=== PATIENT | female | born 1960 | race Caucasian/White ===

== ENCOUNTER → 2017-01-06 | Outpatient (CLI) | payer BC ==
[~2017-01-06] MED LIST: PRT/20 PO
--- NOTE | 2017-01-07 08:01 | MAMMOGRAPHY REPORT ---
BILATERAL DIGITAL SCREENING MAMMOGRAM TOMOSYNTHESIS WITH CAD: 01/06/2017 CLINICAL HISTORY: Routine screening examination. TECHNIQUE: Breast tomosynthesis in addition to standard 2D mammography was performed. Current study was also evaluated with a Computer Aided Detection (CAD) system. COMPARISON: Comparison is made to exams dated: 01/04/2016 mammogram, 01/02/2015 mammogram, 12/28/2012 ma mmogram, and 12/27/2011 mammogram - [facility]. BREAST COMPOSITION: There are scattered areas of fibroglandular density in both breasts. FINDINGS: There is a newly visualized 3.8 mm circumscribed round mass in the upper inner posterior left breast, for which additional characterization with ultrasound and possible additional mammograp hic views are recommended. There are scattered stable benign-appearing microcalcifications bilaterally. No other suspicious mas s, architectural distortion or cluster of microcalcifications is seen. IMPRESSION: ACR BI-RADS CATEGORY 0: INCOMPLETE EVALUATION: NEED ADDITIONAL IMAGING EVALUATION The newly visualized 3.8 mm circumscribed round mass in the left upper inner breast needs additional evaluation. The patient will be called to schedule an appointment. Approximately 10% of breast cancers are not detected with mammography. A negative mammographic repor t should not delay biopsy if a clinically suggestive mass is present. Jolynn Betancourt M.D. ay/:01/06/2017 21:12:50 Pharmaceutical Operator: Leidy LANGLEY)(Esme), [facility] letter sent: Addl Imaging 0 BI-RADS Code: ACR BI-RADS Category 0: Incomplete Evaluation: Need Additional Imaging Evaluation
== END | disposition home or self-care (01) ==
LOC: C.MAMM 08:43
PROVIDERS: ATTEND Obstetrics & Gynecology
DX: Z12.31 Encounter for screening mammogram for malignant neoplasm of breast (principal); N63 Unspecified lump in breast

== ENCOUNTER → 2017-01-15 | Outpatient (CLI) | payer BC ==
--- NOTE | 2017-01-15 14:26 | MAMMOGRAPHY REPORT ---
UNILATERAL LEFT DIGITAL DIAGNOSTIC MAMMOGRAM TOMOSYNTHESIS AND TARGETED LEFT ULTRASOUND: 01/15/2017 CLINICAL HISTORY: Callback from screening mammogram for left breast mass. TECHNIQUE: Breast tomosynthesis in addition to standard 2D mammography was performed. Spot sima lin left CC and MLO 2-D and tomosynthesis images were obtained. COMPARISON: Comparison is made to exams dated: 01/06/2017 mammogram, 01/04/2016 mammogram, 01/02/2015 antonio mogram, 12/30/2013 mammogram, 12/28/2012 mammogram, and 12/27/2011 mammogram - [facility]. BREAST COMPOSITION: There are scattered areas of fibroglandular density in the left breast. FINDINGS: Spot compression views demonstrate a persistent round circumscribed 5 mm mass seen within the left upper inner quadrant posteriorly. Targeted ultrasound was performed of the left upper inner quadrant in the region of the mammographic mass. In the left breast at 10:00, 6 cm from the nipple, there is a subdermal round circumscribed mixed echogenicity mass which is partially hypoechoic and partially anechoic, measuring 4 x 3 x 4 mm . A probable thin hypoechoic tract to the skin is seen, suggesting that this likely represents an e pidermal inclusion/sebaceous cyst. This corresponds with the mammographic mass. On clinical exam, no clear black punctum is seen. However, on questioning the patient reports that she has seen a edu ck "pore "in this region and has been able to squeeze white smelly material from the mass in the pas t. Given the sonographic appearance and given the clinical history, the mass is benign and consiste nt with an epidermal inclusion/sebaceous cyst. IMPRESSION: ACR BI-RADS CATEGORY 2: BENIGN, TARGETED ULTRASOUND ACR BI-RADS CATEGORY 2: BENIGN The mammographic mass corresponds with a subdermal 4 mm mass in the left breast at 10:00, which is b enign and consistent with an epidermal inclusion/sebaceous cyst. There is no mammographic or targeted sonographic evidence of malignancy. Recommend clinical follow- up. A 1 year screening mammogram is also recommended. The patient has been verbally notified of th e results. Approximately 10% of breast cancers are not detected with mammography. A negative mammographic repor t should not delay biopsy if a clinically suggestive mass is present. Marisela Barclay M.D. ah/:01/15/2017 10:20:43 Barn And Property Manager: Sarita LANGLEY)(M), [facility] letter sent: Normal 1/2 BI-RADS Code: ACR BI-RADS Category 2: Benign Ultrasound BI-RADS: ACR BI-RADS Category 2: Benign
== END | disposition home or self-care (01) ==
LOC: C.MAMM 09:52
PROVIDERS: ATTEND Obstetrics & Gynecology
DX: N63 Unspecified lump in breast (principal)

== ENCOUNTER → 2017-04-21 | Outpatient (CLI) | payer BC | END | disposition home or self-care (01) | LOC: C.PAPS 10:57 | PROVIDERS: ATTEND Obstetrics & Gynecology | DX: Z01.419 Encounter for gynecological examination (general) (routine) without abnormal findings (principal) ==

== ENCOUNTER → 2018-01-08 | Outpatient (CLI) | payer BC ==
--- NOTE | 2018-01-08 15:05 | MAMMOGRAPHY REPORT ---
BILATERAL DIGITAL SCREENING MAMMOGRAM TOMOSYNTHESIS WITH CAD: 01/08/2018 CLINICAL HISTORY: Routine screening. Patient has no complaints. TECHNIQUE: Breast tomosynthesis in addition to standard 2D mammography was performed. Current study was also evaluated with a Computer Aided Detection (CAD) system. COMPARISON: Comparison is made to exams dated: 01/15/2017 mammogram, 01/15/2017 ultrasound, 01/06/2017 m ammogram, 01/04/2016 mammogram, 01/02/2015 mammogram, and 12/30/2013 mammogram - [facility]. BREAST COMPOSITION: There are scattered areas of fibroglandular density in both breasts. FINDINGS: No suspicious masses, calcifications, or areas of architectural distortion are noted in ei ther breast. There has been no significant interval change compared to prior exams. IMPRESSION: ACR BI-RADS CATEGORY 1: NEGATIVE There is no mammographic evidence of malignancy. A 1 year screening mammogram is recommended. The pa tient will receive written notification of the results. Approximately 10% of breast cancers are not detected with mammography. A negative mammographic report should not delay biopsy if a clinically suggestive mass is present. Marisela Barclay M.D. /:01/08/2018 09:08:37 Pcu Rn: Emily VERA(Paige)(M), [facility] letter sent: Normal 1/2 BI-RADS Code: ACR BI-RADS Category 1: Negative
== END | disposition home or self-care (01) ==
LOC: C.MAMM 08:43
PROVIDERS: ATTEND Obstetrics & Gynecology
DX: Z12.31 Encounter for screening mammogram for malignant neoplasm of breast (principal)

== ENCOUNTER → 2018-05-26 | Outpatient (CLI) | payer BC ==
[~2018-05-26] VITALS: Ht 172.7 cm; Wt 72.9 kg
[2018-05-26 12:37] VITALS: BP 109/73; PULSE 56; Ht 172.7 cm; Wt 72.9 kg
== END | disposition home or self-care (01) ==
LOC: C.NEUR 11:50
PROVIDERS: ATTEND Internal Medicine Pulmonary Disease
DX: R53.83 Other fatigue (principal); R06.83 Snoring; G47.9 Sleep disorder, unspecified; R61 Generalized hyperhidrosis; G47.19 Other hypersomnia; F51.12 Insufficient sleep syndrome

== ENCOUNTER → 2018-06-23 | Outpatient (CLI) | payer BC ==
--- NOTE | 2018-06-24 06:37 | PAP/PSG TECHNICIAN REPORT ---
[facility] Polishing Machine Tender Polysomnogram Report Study name: None Report date: 06/24/2018 Study date: 06/23/2018 Referring Physician: DR. RINCON Name: STEPHANIE MATIAS Interpreting Physician: Vish Rincon M.D. Date of : 1960 Polishing Machine Tender: JOSÉ ANTONIO Baldwin. Sex: Female Age: 58 StudyType: PSG Weight: 160 lbs 13.5 inches Height: 58 years, Height 5' 8" Neck Circum: BMI: 24.33 Medications: FISH OIL, GARLIC TABS, ZINC Patient History PATIENT HAS HISTORY OF FATIGUE, SNORING AND NIGHT SWEATS. ALSO SHE HAS TROUBLE MAINTAINING SLEEP AT TIMES. SHE IS HERE TODAY FOR AN EVALUATION FOR SURINDER. ESS = 9 RM 6 Parameters Monitored NPSG: E1-M2, E2-M1, Fp1-M2, Fp2-M1, F3-M2, F4-M2, F4-M1, C3-M2, C4-M2, C4-M1, O1-M2, O2-M2, O2-M1, T3-M2, T4-M1, P3-M2, P4-M1, CHIN1, CHIN2, HR, EKG, Legs, PFLOW, SNOR, FLOW, CFLOW, Tidal Volume, THOR, ABDO, SpO2, PLTH, CPRESS, ETCO2 Wave, ETCO2, pH Sleep Architecture Sleep Stages Time at Lights Off 10:08:33 PM STAGES Time (min.) TST (%) Time at Lights On 5:33:03 AM Wake 72.5 -- Total Recording Time (TRT) 445.00 min. N1 45.0 12 Total Sleep Period (TSP) 416.0 min. N2 162.0 44 Total Sleep Time (TST) 372.0min. N3 94.5 25 Awake Time 72.5 min. REM 70.5 19 Wake after Sleep Onset 44.0 min. Sleep Efficiency (SE) 84 % Sleep Onset Latency (RANDOLPH) 28.5 min. Number of Stage 1 Shifts None Awakenings 37 Stage Changes 119 Number of REM periods 5 REM 70.5 19 REM Latency 93.5 min. NREM 301.5 81 Body Position Analysis Supine Right Left Side Prone Vertical Total Sleep Time (min.) 195.4 0.0 222.9 222.93 0.0 0.0 Total Sleep Time (%) 40% 0% 60% 60 0% N/A% Total Sleep Time REM (min.) 15.5 0.0 55.0 None 0.0 0.0 Total Sleep Time NREM (min.) 133.6 0.0 167.9 None 0.0 0.0 Intermittent Wake (min.) 46.4 0.0 26.1 None 0.0 0.0 Total Sleep Period (%) 40% None None None None None Arousals Myoclonus (PLM) * Events Count Index Events Count Index Spontaneous 63 10 Events Awake (PLMW) 74 61.2 Respiratory 32 5.0 Events Asleep w/ Arousal (PLMA) 7 1.1 PLM 6 1 Events Asleep w/o Arousal (PLMS) 81 13.1 Snoring 6 1 Total Asleep 88 14.2 Total 107 17 Total 162 22 Respiratory Analysis * CA OA MA CH H RERA Total Count 3 1 1 0 69 7 74 Index 0.5 0.2 0.2 0 11.1 1 13.1 Mean Duration 15.3 14.5 31.5 0.00 18.5 15.4 18.2 Longest Duration 16.9 14.5 31.5 0.00 31.5 16.6 43.0 Respiratory Event Summary Total Supine ~Supine Right Left Prone REM NREM Apneas Count 5 5 0 N/A 0 N/A 0 5 Index 0.8 2 0 N/A 0.0 N/A 0 1 Hypopneas (4% Desat) Count 69 56 13 N/A 13 N/A 8 61 Index 11.1 22.5 3 N/A 3.5 N/A 6.8 12.1 Apneas & All Hypopneas Count 74 61 13 N/A 13 N/A 8 66 Index 11.9 25 3 N/A 3 N/A 6.8 13.1 Respiratory Events (Podiatric Physician+All Hyp+RERA) Count 74 64 17 N/A 17 N/A 8 66 Index 13.1 26 5 N/A 4.6 N/A 8.5 14.1 Respiratory Related Arousal Count 32 64 8 N/A 8 N/A 3 28 Index 5.0 9 2 N/A 2 N/A 3 6 Snoring Analysis Supine Right Left Prone REM NREM Total Snore duration 12.5 min Snores count 143 N/A 383 N/A 38 488 526 Snore mean duration 1.4 Sec Snores index 58 N/A 103 N/A 32.3 97.1 84.8 TST with snoring (%) 3.4% Desaturation Event Summary: Minimum %SpO2 Event Count Mean/Min/Max Duration(sec.) Desaturation Index % Time In Bed > 90 88 25.3 / 12.0 / 60.0 16.1 74.1 86 - 90 17 23.6 / 16.3 / 49.8 9.0 25.7 81 - 85 0 N/A 0.0 0.2 76 - 80 0 N/A 0.0 0.0 71 - 75 0 N/A 0.0 0.0 66 - 70 0 N/A 0.0 0.0 61 - 65 0 N/A 0.0 0.0 56 - 60 0 N/A 0.0 0.0 51 - 55 0 N/A 0.0 0.0 < 50 0 N/A 0.0 0.0 Total REM NREM Awake <50% 0.0 min. 0.0 min. 0.0 min. 0.0 min. 51 - 60% 0.0 min. 0.0 min. 0.0 min. 0.0 min. 61 - 70% 0.0 min. 0.0 min. 0.0 min. 0.0 min. 71 - 80% 0.0 min. 0.0 min. 0.0 min. 0.0 min. 81 - 90% 114.8 min. 10.4 min. 95.1 min. 9.3 min. 91 - 100% 328.7 min. 60.1 min. 206.2 min. 62.4 min. Average 92 92 91 92 Minimum SpO2 84 87 84 84 Desaturation Event Index 12.0 6.8 13.1 12.4 # Desat. Events below 89% 45 4 41 0 Time(%) with Saturation below 89% 9.8 0.9 8.4 0.5 Time(min.) with Saturation below 89% 43.5 3.9 37.3 2.4 Time (mins) REM (mins) NREM (mins) % of TST SpO2 Below 90% 72 6 N66 19.0 SpO2 Below 88% 17 0 0 6 Heart Rate Analysis Min (bpm) Max (bpm) Average (bpm) Awake 45 79 54 NREM 42 71 50 REM 45 66 51 Overall 42 71 50 Supplemental O2 Values Minimum O2 level: None Value Start Time End Time Polishing Machine Tender Comments Mrs. Matias slept in the supine and left positions. PAC's noted. Leg movements noted. No bruxism noted. Snoring was noted and scored as a 2 on a scale of 1 through 5. (0=no snoring, 5=snoring loud enough to be heard through a closed door or down the [address]) Mrs. Matias awoke to use the restroom 0 times during the night. Mrs. Matias stated I did not sleep as well as I do when I am in my own bed. The final report will be interpreted and signed by a sleep physician. The completed physician report will then be placed in the patient medical record. Therapy (cm H2O) 0 TIB (min.) 444.5 TST (min.) 372.0 Sleep Onset (min.) 28.5 REM Onset From Sleep (min.) 93.5 Sleep Efficiency % 84 Wakefulness (%) 16 Wakefulness (min.) 72.5 NREM 1 (%) 12 NREM 1 (min.) 45.0 NREM 2 (%) 44 NREM 2 (min.) 162.0 NREM 3 (%) 25 NREM 3 (min.) 94.5 REM (%) 19 REM (min.) 70.5 # Arousals 107 Arousal Index 17 # Snore 526 Snore Index 84.8 AHI 11.9 AHI Supine 25 AHI Non-Supine 3 NREM AHI 13.1 REM AHI 6.8 RDI 13.1 # Obstructive Apnea 1 # Central Apnea 3 # Mixed Apnea 1 # Hypopneas 69 RERAs 7 Total Respiratory Events 85 Time Below SpO2 89% (min.) 41.1 Mean NREM SpO2 (%) 91 Mean REM SpO2 (%) 92 Mean Sleep SpO2 (%) 91 Min NREM SpO2 (%) 84 Min REM SpO2 (%) 87 Position Supine (min.) 195.4 Position Non-supine (min.) 222.9 LM Index Sleep 14.2 LM Index NREM 13.3 LM Index REM 17.9 Mean Heart Rate (bpm) 50 Min Heart Rate (bpm) 42
--- NOTE | 2018-06-26 10:20 | POLYSOMNOGRAPH REPORT ---
CLINICAL DATA: A 58-year-old female with BMI of 24.3 referred by myself and Dr. Zuniga for evaluation of fatigue, snoring, and sleep disturbances. SLEEP ARCHITECTURE: Total sleep period was 416 minutes. Total sleep time was 372 minutes divided between 301.5 minutes of non-REM sleep and 70.5 minutes of REM sleep. Sleep onset latency was 28.5 minutes. REM latency was 93.5 minutes. Sleep efficiency was 84%. Wake after sleep onset was 44 minutes. Sleep consisted of stage N1 12%, stage N2 44%, stage N3 25%, and REM 19%. AROUSAL DATA: 107 arousals were recorded for an index of 17 per hour. 63 were due to spontaneous arousals. 32 were due to respiratory events. PLM DATA: 88 limb movements during sleep were noted for an index of 14.2 per hour with arousal index of 1.1 per hour. RESPIRATORY DATA: Mild sleep apnea was documented. The AHI was 12. The RDI was 13.1. There were 3 central, 1 obstructive, and 1 mixed apneic episode. The longest apneic episode was 31.5 seconds. There were 69 hypopneic episodes with the mean duration of 18.5 seconds. There were 7 RERAs. The longest RERA was 16.6 seconds. OXIMETRY DATA: Nocturnal hypoxemia was seen. Oxygen eyad was 84% during non-REM sleep. Mean saturation was 92%. Time below 88% was 17 minutes. EKG: Heart rates ranged from 42-71 beats per minute. PACs were noted. QUALITY CONTROL ANALYST'S COMMENTS: The patient slept in the left and supine positions. Snoring was mild, rated 2 on a scale of 1-5. IMPRESSION: Mild sleep apnea/hypopnea with an AHI of 12 and an RDI of 13.1 with nocturnal hypoxemia. RECOMMENDATIONS: The patient may benefit from use of an oral appliance, repeat sleep study with CPAP, or use of auto CPAP. Clinical correlation is needed. DANETTE
== END | disposition home or self-care (01) ==
LOC: C.NEUR 21:00
PROVIDERS: ATTEND Internal Medicine Pulmonary Disease
DX: G47.30 Sleep apnea, unspecified (principal)